=== PATIENT | female | born 1960 | race Caucasian/White ===

== ENCOUNTER 2023-03-16 09:58 | Day surgery (SDC) | payer BC ==
[2023-03-16] MEDS ORDERED: Lidocaine 1% PF 5 ML VIAL ONE (10:38)
[2023-03-16] MEDS ORDERED: Sodium Bicarbonate 2.5 MEQ/5 ML SDV ONE (10:38)
[2023-03-16 11:02] VITALS: BP 147/70; TEMP 98.9
[2023-03-16] MEDS ORDERED: FLU VACC QS2023-24(6MOS UP)/PF 60 MCG/0.5 ML SYRINGE IM ONE (11:15)
== END 2023-03-16 12:51 | disposition home or self-care (01) ==
LOC: CSHRAD 09:58
PROVIDERS: ATTEND Neurological Surgery
PROC: B02BYZZ Computerized Tomography (CT Scan) of Spinal Cord using Other Contrast (ICD-10-PCS; principal; 2023-03-16)
DX: M48.062 Spinal stenosis, lumbar region with neurogenic claudication (principal); M06.9 Rheumatoid arthritis, unspecified; I10 Essential (primary) hypertension; E78.5 Hyperlipidemia, unspecified; G89.29 Other chronic pain; Z90.710 Acquired absence of both cervix and uterus; Z79.899 Other long term (current) drug therapy; Z98.890 Other specified postprocedural states; Z88.0 Allergy status to penicillin; Z88.8 Allergy status to other drugs, medicaments and biological substances
CPT/HCPCS: 62304; 72132